=== PATIENT | female | born 1950 | race Caucasian/White ===

== ENCOUNTER → 2020-11-21 | Day surgery (SDC) | payer OTHER, MEDICARE | END | disposition home or self-care (01) | LOC: JRADUS-SUR 10:32 | PROVIDERS: ATTEND Internal Medicine Hematology & Oncology | PROC: 0H9T3ZX Drainage of Right Breast, Percutaneous Approach, Diagnostic (ICD-10-PCS; principal; 2020-11-21) | DX: N60.31 Fibrosclerosis of right breast (principal); D24.1 Benign neoplasm of right breast | CPT/HCPCS: 19083; 77065-TC ==